=== PATIENT | male | born 1965 | race Asian ===

== ENCOUNTER 2016-09-25 21:47 | Emergency (ER) | payer OTHER ==
[~2016-09-25] VITALS: Ht 167.6 cm; Wt 72.7 kg
[2016-09-25 21:49] VITALS: BP 153/97
[2016-09-25] MEDS ORDERED: FLUORESCEIN OPHTHALMIC 1 MG STRIP ONE (22:06)
[2016-09-25] MEDS ORDERED: PROPARACAINE OPHTH 0.5%, 15ML ONE (22:07)
== END 2016-09-25 23:02 | disposition home or self-care (01) ==
LOC: ED 22:57
DX: H10.023 Other mucopurulent conjunctivitis, bilateral (principal)
CPT/HCPCS: 99283